=== PATIENT | female | born 1940 | race Caucasian/White ===

== ENCOUNTER → 2016-10-29 | Outpatient (CLI) | payer MEDICARE, BC ==
[~2016-10-29] MED LIST: COREG PO; ZESTORETIC 20/21 TAB PO; ZOCOR PO
--- NOTE | ~2016-10-29 | CT4 ---
[facility] A Service of [facility] & [facility] RADIOLOGY TEXT RESULTS PATIENT: NICKO RAYMUNDO LOCATION: [facility] : 38 UNIT #: [id number] AGE: [address]: Kirill Means MD SEX: F ORDER DR: [id number] [facility] [address] [place], [place] [address] [id number] O MR#: [id number] [facility] #: [id number] NAME: NICKO RAYMUNDO : 1940 SEX: F STUDY DATE/TIME: 10/29/2016 14:39 UNIT: [facility] ROOM: STUDY DESCRIPTION: CT Abd and Pelv Wo Cont Attending Physician: Kirill Means M.D. Referring Physician: Kirill Means M.D. Ordering Physician: Kirill Means M.D. Primary Care Physician: Kirill Means M.D. MEDICAL IMAGING REPORT This report is preliminary unless electronic signature is present EXAM CT abdomen and pelvis without IV contrast COMPARISON None INDICATIONS 76-year-old female with microscopic hematuria for [address] abdomen and pelvis was performed without IV contrast. Coronal and sagittal reformats were constructed. This CT exam was performed with one or more of the following radiation dose reduction techniques: automatic exposure control, adjustment of mA and/or kV according to patient size, and iterative reconstruction. FINDINGS Lack of IV contrast limits evaluation of adenopathy, vasculature and viscera. There is a focal fat containing hernia of the left anterior abdominal wall. Multilevel moderate degenerative facet disease of the lumbar spine. Diffuse osteopenia. Degenerative grade 1 anterolisthesis of L4 on L5. Small posterior disc protrusions L3-L4 and L5-S1. Mild osteophyte formation at both hips. Noncalcified pleural-based nodule measuring 5 mm in the right middle lobe. Separate noncalcified nodule in the right lower lobe measuring 5 mm. Another pleural-based nodule in the medial basilar segment, right lower lobe, measuring 7 mm. Left lower lobe nodule measuring 4 mm and other pleural-based left lower lobe nodule measuring up to 5 mm and a separate pleural-based left lower lobe nodule measuring up to 5 mm. Another pleural-based nodule in the left lower lobe measuring up to approximately 4 mm. Another incompletely imaged pleural-based nodule in the left lower lobe measuring up to 4 mm. Tiny pleural-based nodule in STS. [facility] A Service of [facility] & [facility] RADIOLOGY TEXT RESULTS PATIENT: NICKO RAYMUNDO LOCATION: [facility] : 39 UNIT #: [id number] AGE: [address]: Kirill Means MD SEX: F ORDER DR: the left lower lobe measuring up to 2 mm. Small hiatal hernia. Calcified granulomas in the liver and spleen. Prior cholecystectomy. Hepatomegaly with hepatic length of 19.4 cm. [id number] fatty replacement of the pancreas. Diffuse calcification of the abdominal aorta with extension to involve the origins of the celiac, superior mesenteric, and bilateral renal arteries. There has been prior hysterectomy. Urinary bladder is displaced into the right pelvis with a tethered appearance to the right adnexal region, possibly reflecting postsurgical adhesion from prior resection of the sigmoid colon. Calcifications extend to the iliac arteries and femoral arteries bilaterally. No evidence of bowel obstruction. No free fluid or pneumoperitoneum. Adrenal glands and kidneys are within normal limits. No hydronephrosis or hydroureter. No adenopathy of the abdomen or pelvis. IMPRESSION 1. No acute findings the abdomen, pelvis, or imaged lower chest. In particular, the kidneys are unremarkable. 2. The patient is post hysterectomy, cholecystectomy and partial sigmoid colon resection. The urinary bladder is tethered on the right superolaterally, possibly due to adhesions from prior surgery in the pelvis. 3. Small fat-containing left paramidline abdominal wall hernia. 4. Multilevel degenerative facet disease with degenerative disc disease of the lumbar spine, as described in the body of the report. There is a significant for small posterior multilevel disc protrusions. 5. Multiple noncalcified pulmonary nodules, the largest of which measures up to [address] chest followup without IV contrast is recommended in 3-6 months to document stability. 6. Small hiatal hernia. 7. Diffuse arterial calcification of the abdomen and pelvis as described in the body of the report. 8. There are mild degenerative changes of the hips. 9. Hepatomegaly. No evidence of cirrhosis. Dictated by... Yuri Marquez M.D. THIS IS AN ELECTRONICALLY VERIFIED REPORT Yuri Marquez M.D. at 11/01/2016 9:41 AM JOANNA/rush TD: 10/30/2016 18:04 JOB #: [id number] MEDICAL IMAGING REPORT Page 1 of 1 COPY
== END | disposition home or self-care (01) ==
LOC: CCAT 13:57
DX: R31.29 Other microscopic hematuria (principal); R16.0 Hepatomegaly, not elsewhere classified; I70.0 Atherosclerosis of aorta; K44.9 Diaphragmatic hernia without obstruction or gangrene; R91.8 Other nonspecific abnormal finding of lung field; K43.9 Ventral hernia without obstruction or gangrene; M51.36 Other intervertebral disc degeneration, lumbar region; M51.26 Other intervertebral disc displacement, lumbar region; M16.0 Bilateral primary osteoarthritis of hip; Z90.49 Acquired absence of other specified parts of digestive tract; Z90.710 Acquired absence of both cervix and uterus
CPT/HCPCS: 74176